=== PATIENT | male | born 1985 | race Caucasian/White ===

== ENCOUNTER 2018-05-24 11:38 | Emergency (ER) | payer SELFPAY ==
[~2018-05-24] VITALS: Ht 175.3 cm; Wt 74.8 kg
[2018-05-24 12:02] LABS: BASOPHILS ABSOLUTE AUTO 0.02 K/mm3 (0.00-0.23); BASOPHILS PERCENT AUTO 0 % (0-2); EOSINOPHILS PERCENT AUTO 1 % (0-6); Hematocrit 42.6 % (37.0-53.0); Hemoglobin 14.6 g/dL (13.5-17.5); IMMATURE GRAN ABSOLUTE AUTO 0.04 K/mm3 (0.00-0.10); IMMATURE GRAN PERCENT AUTO 1 % (0-1); LYMPHOCYTES ABSOLUTE AUTO 1.93 K/mm3 (0.84-5.20); LYMPHOCYTES PERCENT AUTO 24 % (21-46); MONOCYTES ABSOLUTE AUTO 1.07 K/mm3 (0.16-1.47); MONOCYTES PERCENT AUTO 13 % (4-13); Mean Corpuscular HGB 28.6 pg (26.0-34.0); Mean Corpuscular HGB Conc 34.3 g/dL (31.5-36.5); Mean Corpuscular Volume 83 fL (80-100); Mean Platelet Volume 9.5 fL (9.1-12.4); NEUTROPHILS ABSOLUTE AUTO 5.05 K/mm3 (1.96-9.15); NEUTROPHILS PERCENT AUTO 62 % (41-73); Platelet Count 346 K/mm3 (150-400); RDW Coefficient Variation 14.4 % (11.7-14.2); RDW Standard Deviation 43.3 fL (35.1-46.3); Red Blood Cell Count 5.11 M/mm3 (4.30-5.90); White Blood Cell Count 8.21 K/mm3 (4.00-11.30)
[2018-05-24 12:12] LABS: Alanine Aminotransfer (ALT/SGP 56 U/L (12-78); Albumin, Blood 3.8 g/dL (3.4-5.0); Albumin/Globulin Ratio 1.2 (0.8-1.8); Alk Phos 59 U/L (50-136); Anion Gap 9 mmol/L (6-16); Aspartate Aminotrans (AST/SGOT 58 U/L (12-37); Bilirubin, Total 0.5 mg/dL (0.1-1.0); Blood Urea Nitrogen 13 mg/dL (8-24); Bun/Creatinine Ratio 15.2 (12.0-20.0); CO2, Blood 29 mmol/L (21-32); Calcium, Blood 8.8 mg/dL (8.5-10.1); Chloride, Blood 102 mmol/L (98-108); Creatinine, Blood 0.86 mg/dL (0.60-1.20); Globulin, Blood 3.2 g/dL (2.2-4.0); Glomerular Filtration Rate >60 (60-); Glucose, Blood 104 mg/dL (70-99); Potassium, Blood 3.1 mmol/L (3.5-5.5); Sodium, Blood 140 mmol/L (136-145)
[2018-05-24] MEDS ORDERED: CHLO25 PO (13:06)
== END 2018-05-24 13:30 | disposition home or self-care (01) ==
LOC: ER 11:38
PROVIDERS: Emergency Medicine
DX: R56.9 Unspecified convulsions (principal); E87.6 Hypokalemia; F10.239 Alcohol dependence with withdrawal, unspecified
CPT/HCPCS: 80053; 85025; 99284; J7030

== ENCOUNTER 2018-05-24 23:53 | Emergency (ER) | payer MEDICAID ==
[~2018-05-24] VITALS: Ht 180.3 cm; Wt 86.2 kg
[~2018-05-24 23:53] MED LIST: CHLO25 PO
== END 2018-05-25 01:03 | disposition home or self-care (01) ==
LOC: ER 23:53
DX: S00.81XA Abrasion of other part of head, initial encounter (principal); S60.511A Abrasion of right hand, initial encounter; S40.211A Abrasion of right shoulder, initial encounter; W22.8XXA Striking against or struck by other objects, initial encounter; Z79.899 Other long term (current) drug therapy
CPT/HCPCS: 99283

== ENCOUNTER 2021-11-18 00:02 | Emergency (ER) | payer OTHER ==
[~2021-11-18] VITALS: Ht 180.3 cm; Wt 83.9 kg
[2021-11-18] MEDS ORDERED: IBUP600 PO (02:09)
== END 2021-11-18 02:31 | disposition home or self-care (01) ==
LOC: ER 00:02
DX: S39.012A Strain of muscle, fascia and tendon of lower back, initial encounter (principal); R56.9 Unspecified convulsions; F43.9 Reaction to severe stress, unspecified; Z79.899 Other long term (current) drug therapy; Z85.850 Personal history of malignant neoplasm of thyroid; Y04.8XXA Assault by other bodily force, initial encounter
CPT/HCPCS: 72100; 96372; 99284-25; A9270; J1885

== ENCOUNTER 2021-11-18 22:30 | Inpatient (IN) | payer OTHER ==
[~2021-11-18] VITALS: Ht 180.3 cm; Wt 86.5 kg
[~2021-11-18 22:30] MED LIST changes: +IBUP600 PO
[2021-11-18 23:14] LABS: Source, Urine Clean Catch
[2021-11-18 23:17] LABS: BASOPHILS ABSOLUTE AUTO 0.02 K/mm3 (0.00-0.23); BASOPHILS PERCENT AUTO 0 % (0-2); EOSINOPHILS ABSOLUTE AUTO 0.06 K/mm3 (0.00-0.68); EOSINOPHILS PERCENT AUTO 1 % (0-6); Hemoglobin 12.9 g/dL (13.5-17.5); IMMATURE GRAN ABSOLUTE AUTO 0.04 K/mm3 (0.00-0.10); IMMATURE GRAN PERCENT AUTO 0 % (0-1); LYMPHOCYTES ABSOLUTE AUTO 1.69 K/mm3 (0.84-5.20); LYMPHOCYTES PERCENT AUTO 18 % (21-46); MONOCYTES ABSOLUTE AUTO 0.87 K/mm3 (0.16-1.47); MONOCYTES PERCENT AUTO 9 % (4-13); Mean Corpuscular HGB 28.2 pg (26.0-34.0); Mean Corpuscular HGB Conc 33.9 g/dL (31.5-36.5); Mean Corpuscular Volume 83 fL (80-100); Mean Platelet Volume 9.5 fL (9.1-12.4); NEUTROPHILS PERCENT AUTO 72 % (41-73); Platelet Count 281 K/mm3 (150-400); RDW Coefficient Variation 13.4 % (11.7-14.2); Red Blood Cell Count 4.58 M/mm3 (4.30-5.90); White Blood Cell Count 9.38 K/mm3 (4.00-11.30)
[2021-11-18 23:22] LABS: Appearance, Urine Clear (Clear); Bilirubin, Urine Neg (Neg); Blood, Urine Neg (Neg); Color, Urine Yellow (P-Yellow); Glucose Qualitative, Urine Neg (Neg); Ketones, Urine 3+ (Neg); Leukocyte Esterase, Urine Neg (Neg); Nitrite, Urine Neg (Neg); Protein, Urine Neg (Neg); Specific Gravity, Urine 1.025 (1.003-1.022); Urobilinogen, Urine NORM (Normal)
[2021-11-18 23:34] LABS: Acetaminophen, Random <2.0 ug/mL (10.0-30.0); Alanine Aminotransfer (ALT/SGP 49 U/L (12-78); Albumin, Blood 3.3 g/dL (3.4-5.0); Albumin/Globulin Ratio 1.1 (0.8-1.8); Alk Phos 54 U/L (50-136); Anion Gap 8 mmol/L (6-16); Aspartate Aminotrans (AST/SGOT 65 U/L (12-37); Bilirubin, Total 0.4 mg/dL (0.1-1.0); Blood Urea Nitrogen 17 mg/dL (8-24); Bun/Creatinine Ratio 23.3 (12.0-20.0); CO2, Blood 24 mmol/L (21-32); Calcium, Blood 8.2 mg/dL (8.5-10.1); Chloride, Blood 110 mmol/L (98-108); Creatinine, Blood 0.73 mg/dL (0.60-1.20); Ethanol (Alcohol), Blood, Med <3 mg/dL; Glomerular Filtration Rate >60 (60-); Glucose, Blood 101 mg/dL (70-99); Potassium, Blood 3.4 mmol/L (3.5-5.5); Salicylate <1.7 mg/dL (2.8-20.0); Sodium, Blood 142 mmol/L (136-145); Total Protein, Blood 6.3 g/dL (6.4-8.2); Valproic Acid 64.1 ug/mL (50.0-100.0)
[2021-11-18 23:38] LABS: U Amphetamine Screen Not Detected; U Barbituate Screen Not Detected; U Benzodiazapine Screen Not Detected; U Buprenorphine Screen Not Detected; U Cannabinoids Screen DETECTED; U Cocaine Screen Not Detected; U Methadone Screen Not Detected; U Methamphetamine Screen Not Detected; U Opiates Screen Not Detected; U Oxycodone Screen Not Detected; U Phencyclidine Screen Not Detected; U Propoxyphene Screen Not Detected
[2021-11-19 03:48] LABS: Valproic Acid 63.6 ug/mL (50.0-100.0)
--- NOTE | 2021-11-19 03:48 | NUR ---
NURSE NOTE: 0332 REC'D PT FROM ER TRANSFER INTO BED. PT RESPOND BUT VERY LETHARGIC. VS WNL WITH NO SIGNS OF DISTRESS NOTED. HANDS APPREAR RED AND BRUISED. PT ON SUICIDE WATCH WITH TWO MD HOLD. ROOM MITIGATION COMPLETED. SITTER AT DOOR. IV IN RIGHT AC 20G WITH POTASSIUM INFUSING AT 50ML/HR. MONITORING AND MAINTAINING ALL SAFTEY PRECUATION.
[2021-11-19 07:02] LABS: BASOPHILS ABSOLUTE AUTO 0.03 K/mm3 (0.00-0.23); BASOPHILS PERCENT AUTO 1 % (0-2); EOSINOPHILS ABSOLUTE AUTO 0.09 K/mm3 (0.00-0.68); EOSINOPHILS PERCENT AUTO 2 % (0-6); Hematocrit 40.1 % (37.0-53.0); Hemoglobin 13.3 g/dL (13.5-17.5); IMMATURE GRAN ABSOLUTE AUTO 0.03 K/mm3 (0.00-0.10); IMMATURE GRAN PERCENT AUTO 1 % (0-1); LYMPHOCYTES ABSOLUTE AUTO 1.87 K/mm3 (0.84-5.20); LYMPHOCYTES PERCENT AUTO 30 % (21-46); MONOCYTES ABSOLUTE AUTO 0.73 K/mm3 (0.16-1.47); MONOCYTES PERCENT AUTO 12 % (4-13); Mean Corpuscular HGB 28.1 pg (26.0-34.0); Mean Corpuscular HGB Conc 33.2 g/dL (31.5-36.5); Mean Corpuscular Volume 85 fL (80-100); Mean Platelet Volume 9.3 fL (9.1-12.4); NEUTROPHILS ABSOLUTE AUTO 3.45 K/mm3 (1.96-9.15); NEUTROPHILS PERCENT AUTO 56 % (41-73); Platelet Count 240 K/mm3 (150-400); RDW Coefficient Variation 13.5 % (11.7-14.2); Red Blood Cell Count 4.73 M/mm3 (4.30-5.90)
[2021-11-19 07:24] LABS: Alanine Aminotransfer (ALT/SGP 42 U/L (12-78); Albumin, Blood 2.9 g/dL (3.4-5.0); Alk Phos 49 U/L (50-136); Anion Gap 5 mmol/L (6-16); Aspartate Aminotrans (AST/SGOT 52 U/L (12-37); Bilirubin, Total 0.5 mg/dL (0.1-1.0); Blood Urea Nitrogen 11 mg/dL (8-24); Bun/Creatinine Ratio 15.6 (12.0-20.0); CO2, Blood 25 mmol/L (21-32); Calcium, Blood 7.7 mg/dL (8.5-10.1); Chloride, Blood 113 mmol/L (98-108); Creatinine, Blood 0.71 mg/dL (0.60-1.20); Glomerular Filtration Rate >60 (60-); Glucose, Blood 92 mg/dL (70-99); Potassium, Blood 3.7 mmol/L (3.5-5.5); Sodium, Blood 143 mmol/L (136-145); Total Protein, Blood 5.9 g/dL (6.4-8.2)
--- NOTE | 2021-11-19 07:24 | NUR ---
[address] KAMARA NOTIFIED.
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
--- NOTE | 2021-11-19 07:59 | NUR ---
PT IS INSISTING ON SOAKING HIS FEET IN EPSOM SALTS, STATES "I'M NOT DOING ANYTHING UNTIL I SOAK MY FEET" DR. CHEEMA NOTIFIED, SOAKING FEET IN EPSOM SALTS IS NOT IDEAL THIS TIME PER DR. CHEEMA, PT IS HAVING VISUAL AND AUDITORY HALLUCINATIONS, REFUSES TO ANSWER ANY QUESTIONS UNTIL HE SOAKS HIS FEET, PT HAS TURNED OFF HIS IV PUMP AND PULLED OUT THE CASSETTE, IV SALINE LOCKED AT THIS TIME, UNABLE TO GET ANY HISTORY AT THIS TIME OR ASSESS PT.
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
--- NOTE | 2021-11-19 10:26 | NUR ---
PATIENT WALKED FROM HIS ROOM AND LOCKED HIMSELF IN HALLWAY BATHROOM, SPEAKING IN A DEVIL LIKE VOICE "WHO THE F--K DO YOU HOLINESS, ME OR GOD" YOU WILL DECIDE WHEN I SHOOT YOU. SECURITY OUTSIDE OF DOOR, POLICE CALLED FOR ASSISTANCE. PATIENT REMAINED IN BATHROOM. POLICE SPOKE TO PATIENT THROUGH DOOR, DOOR WAS THEN OPENED, PATIENT CALMLY ALLOWED POLICE TO PLACE HIM IN CUFFS TO BE ESCORTED TO ED CRISIS HOLD ROOM. DR CHEEMA NOTIFIED THAT PATIENT WILL NEED TO REMAIN ON HOSPITALIST SERVICE. ER CHARGE NURSE NOTIFIED THAT PATIENT BEING ESCORTED TO HOLD ROOM.
--- NOTE | 2021-11-19 10:30 | NUR ---
PT TRANSFERRED TO ER CRISIS ROOM AFTER LOCKING HIMSELF IN THE PUBLIC RESTROOM WITH POLICE AND SEGMENTAL PAVER INSTALLER, REPORT GIVEN TO ROX PEACOCK, DR. CHEEMA NOTIFIED.
== END 2021-11-19 10:50 | disposition short-term general hospital (02) | DRG 918 ==
LOC: ER 22:30 → SURS 22:31
PROVIDERS: Family Medicine; Physician Assistant; ADMIT Family Medicine
DX: T38.1X2A Poisoning by thyroid hormones and substitutes, intentional self-harm, initial encounter (principal); R45.851 Suicidal ideations; T42.6X2A Poisoning by other antiepileptic and sedative-hypnotic drugs, intentional self-harm, initial encounter; F43.10 Post-traumatic stress disorder, unspecified; F31.9 Bipolar disorder, unspecified; R56.9 Unspecified convulsions; Z59.00 Homelessness unspecified; E89.0 Postprocedural hypothyroidism; Z72.0 Tobacco use; F12.90 Cannabis use, unspecified, uncomplicated; E87.6 Hypokalemia; Z85.850 Personal history of malignant neoplasm of thyroid; Z98.890 Other specified postprocedural states; Z79.899 Other long term (current) drug therapy
CPT/HCPCS: 36415; 80053; 80164; 81003; 82140; 83735; 85025; 93005; 93010; 96365; 96366; 96375; 99285-25; G0378; G0480; J2060; J3480; J7030